=== PATIENT | female | born 1960 ===

== ENCOUNTER 2023-09-01 06:06 | Day surgery (SDC) | payer OTHER ==
[~2023-09-01 06:06] MED LIST: BACLOFEN20 MG; CATAFLAN 50MG; KLONOPIN; LEVSIN0.125 MG; METOPROLOL SUCC25 MG; NEUROTIN 400MG; RESTORIL; SUDAFED SINUS; SYNTHROID75 MCG PO; ZYRTEC10 MG
[2023-09-01] MEDS ORDERED: HEMOSTATIC MATRIX 1 KIT KIT TOP ONE (09:10)
[2023-09-01] MEDS ORDERED: DIBUCAINE 30 GM TUBE ONE (09:10)
[2023-09-01] MEDS ORDERED: BUPIVACAINE HCL/MPF 0.5% 30ML VIAL ONE (09:10)
[2023-09-01] MEDS ORDERED: LIDOCAINE HCL 1%/EPINEPHRINE 20ML VIAL IJ ONE (09:10)
[2023-09-01] MEDS ORDERED: POVIDONE-IODINE 118 ML BOTT TOP ONE (09:10)
[2023-09-01] MEDS ORDERED: METRONIDAZOLE/SODIUM CHLORIDE 500 MG/100 ML PIGGYBACK IV ONE (09:17)
[2023-09-01] MEDS ORDERED: CEFTRIAXONE SODIUM 2,000 MG VIAL ONE (09:17)
== END 2023-09-01 18:00 | disposition home or self-care (01) ==
LOC: CIR.AMB 06:06
PROVIDERS: ATTEND Colon & Rectal Surgery
DX: K64.2 Third degree hemorrhoids (principal); K64.4 Residual hemorrhoidal skin tags; K92.1 Melena; E16.2 Hypoglycemia, unspecified; R00.0 Tachycardia, unspecified; E03.9 Hypothyroidism, unspecified